=== PATIENT | female | born 1950 | race Caucasian/White ===

== ENCOUNTER 2017-03-16 07:16 | Emergency (ER) | payer MEDICARE, OTHER ==
[~2017-03-16] VITALS: Ht 157.5 cm; Wt 64.5 kg
[~2017-03-16 07:16] MED LIST: AMLO-511 PO; CALC500T62 PO; CARV12 PO; CLON0.1T PO; DIGO125T71 PO; INS7030UN SQ; LISI-618 PO; OMEP20TA86 PO; OSEL75 PO; WARF5 PO
[2017-03-16 07:27] LABS: GLUCOSE,POINT OF CARE 212 MG/DL (70-110)
[2017-03-16] MEDS ORDERED: SODIUM CHLORIDE 0.9% 1,000 ML IV ONE (07:45)
[2017-03-16] MEDS ORDERED: ONDANSETRON HCL 4 MG/2 ML VIAL IVP ONE (07:45)
[2017-03-16] MEDS ORDERED: KETOROLAC TROMETHAMINE 30 MG/ML VIAL IVP ONE (07:45)
[2017-03-16 07:58] LABS: BASOPHILS % (AUTO) 0.1 % (0.0-2.0); EOSINOPHILS % (AUTO) 0.5 % (1.0-6.0); HEMOGLOBIN 13.3 g/dL (12.0-16.0); LYMPHOCYTES % (AUTO) 22.1 % (22.0-44.0); MEAN CORPUSCULAR HEMOGLOBIN 27.9 pg (26.0-34.0); MEAN CORPUSCULAR HGB CONC 32.4 G/dL (31.0-37.0); MEAN CORPUSCULAR VOLUME 86 fL (80-100); MONOCYTES # (AUTO) 1.1 K/uL (0.1-1.0); MONOCYTES % (AUTO) 11.4 % (2.0-9.0); NEUTROPHILS # (AUTO) 6.1 K/uL (1.8-7.7); NEUTROPHILS % (AUTO) 65.9 % (40.0-70.0); PLATELET COUNT (AUTO) 185 K/uL (150-450); RED BLOOD CELL COUNT(AUTO) 4.77 MIL/uL (4.00-5.20); WHITE BLOOD COUNT (AUTO) 9.2 K/uL (4.5-11.0)
[2017-03-16 08:09] LABS: INR 2.1 (0.9-1.1); PROTHROMBIN TIME 22.1 SEC (9.4-11.6)
[2017-03-16 08:20] LABS: ANION GAP 6 mmol/L (8-16); CALCIUM, TOTAL 9.3 mg/dL (8.8-10.5); CARBON DIOXIDE 32 mmol/L (22-29); CHLORIDE 103 mmol/L (98-107); CREATININE 0.68 mg/dL (0.60-1.30); GLOMERULAR FILTR. RATE CALC > 60 mL/min (>60); POTASSIUM 4.1 mmol/L (3.5-5.1); SODIUM SERUM 141 mmol/L (136-145); UREA NITROGEN, BLOOD 12 mg/dL (7-18)
[2017-03-16 08:23] LABS: APPEARANCE,URINE CLOUDY (CLEAR); GLUCOSE, URINE (UA) 250 mg/dL (NEGATIVE); KETONES,URINE NEGATIVE (NEGATIVE); LEUKOCYTE ESTERASE ,URINE LARGE (NEGATIVE); OCCULT BLOOD,URINE TRACE (NEGATIVE); PH,URINE 7.5 (5.0-8.0); PROTEIN,URINE NEGATIVE (NEGATIVE)
[2017-03-16 08:24] LABS: ADD UA MICROSCOPIC YES
[2017-03-16 08:25] LABS: ALANINE AMINOTRANSFERASE 38 U/L (12-78); ALBUMIN 3.6 g/dL (3.4-5.0); ASPARTATE AMINOTRANSFERASE 32 U/L (15-37); BILIRUBIN,TOTAL 0.6 mg/dL (0.1-1.0); TOTAL PROTEIN, SERUM 7.4 g/dL (6.4-8.2)
[2017-03-16 08:34] LABS: SQUAMOUS EPITHELIAL CELL,UR Moderate /LPF (None Seen); WBC,URINE 26-50 /HPF (0-5)
[2017-03-16] MEDS ORDERED: CefTRIAXone 1 GM/DEXTROSE 50 ML IV ONE (09:15)
[2017-03-16 10:36] VITALS: BP 150/77
== END 2017-03-16 10:40 | disposition home or self-care (01) ==
LOC: EMS 07:19
DX: N39.0 Urinary tract infection, site not specified (principal); E11.9 Type 2 diabetes mellitus without complications; I10 Essential (primary) hypertension
CPT/HCPCS: 36415; 71010; 76705; 80053; 81001; 82962; 83690; 84484; 85025; 85610; 87077; 87086; 93005; 96361; 96365; 96375; 99285; J0696; J1885; J2405; J7030

== ENCOUNTER → 2017-03-22 | Outpatient (CLI) | payer MEDICARE, OTHER ==
[~2017-03-22] MED LIST changes: +IOVERSOL 350 MG/ML 100 ML VIAL ONE; -OSEL75 PO; +SODIUM CHLORIDE 0.9% 100 ML ONE
== END | disposition home or self-care (01) ==
LOC: RADMN 11:07
PROVIDERS: ATTEND Family Medicine
DX: K57.30 Diverticulosis of large intestine without perforation or abscess without bleeding (principal); N28.89 Other specified disorders of kidney and ureter; Z90.710 Acquired absence of both cervix and uterus
CPT/HCPCS: 74177; J7050; Q9967

== ENCOUNTER 2017-12-05 05:58 | Observation (INO) | payer MEDICARE, OTHER ==
[~2017-12-05] VITALS: Ht 157.5 cm; Wt 64.1 kg
[2017-12-05] VITALS (13 sets, daily range): BP systolic 118–178; BP diastolic 64–88
[~2017-12-05 05:58] MED LIST changes: +7030E SQ; +ATOR10TA84 PO; -CARV12 PO; -DIGO125T71 PO; +FURO20 PO; +GLIP5 PO; +HYDR25TA PO; -INS7030UN SQ; -IOVERSOL 350 MG/ML 100 ML VIAL ONE; +KDUR10 PO; +OMEP20TA25 PO; -OMEP20TA86 PO; -SODIUM CHLORIDE 0.9% 100 ML ONE; +VITAD1000 PO; +WARF7.5 PO
[2017-12-05] MEDS ORDERED: SODIUM CHLORIDE 0.9% 1,000 ML IV ONE ×2 (06:00)
[2017-12-05 06:51] LABS: BASOPHILS # (AUTO) 0.04 K/uL (0.00-0.20); BASOPHILS % (AUTO) 0.5 % (0.0-2.0); EOSINOPHILS # (AUTO) 0.07 K/uL (0.00-0.70); EOSINOPHILS % (AUTO) 0.83 % (1.0-6.0); HEMATOCRIT 39.2 % (36-46); HEMOGLOBIN 13.2 g/dL (12.0-16.0); LYMPHOCYTES # (AUTO) 2.9 K/uL (1.0-4.8); LYMPHOCYTES % (AUTO) 32.4 % (22.0-44.0); MEAN CORPUSCULAR HGB CONC 33.6 G/dL (31.0-37.0); MEAN CORPUSCULAR VOLUME 86 fL (80-100); MONOCYTES # (AUTO) 1.4 K/uL (0.1-1.0); MONOCYTES % (AUTO) 15.1 % (2.0-9.0); NEUTROPHILS # (AUTO) 4.6 K/uL (1.8-7.7); NEUTROPHILS % (AUTO) 51.2 % (40.0-70.0); PLATELET COUNT (AUTO) 210 K/uL (150-450); RED BLOOD CELL COUNT(AUTO) 4.55 MIL/uL (4.00-5.20); RED CELL DISTRIBUTION WIDTH 14.2 % (11.5-14.5)
[2017-12-05 07:03] LABS: INR 1.6 (0.9-1.1); PROTHROMBIN TIME 16.9 SEC (9.4-11.6)
[2017-12-05 07:12] LABS: ANION GAP 6 mmol/L (8-16); CALCIUM, TOTAL 9.8 mg/dL (8.8-10.5); CARBON DIOXIDE 32 mmol/L (22-29); CHLORIDE 100 mmol/L (98-107); CREATININE 0.67 mg/dL (0.60-1.30); GLOMERULAR FILTR. RATE CALC > 60 mL/min (>60); GLUCOSE,RANDOM 56 mg/dL (70-110); POTASSIUM 3.6 mmol/L (3.5-5.1); SODIUM SERUM 138 mmol/L (136-145); UREA NITROGEN, BLOOD 17 mg/dL (7-18)
[2017-12-05] MEDS ORDERED: SODIUM BICARBONATE 50 MEQ/50 ML VIAL ONE (07:12)
[2017-12-05] MEDS ORDERED: LIDOCAINE HCL/PF 1% 30 ML VIAL ONE (07:12)
[2017-12-05] MEDS ORDERED: 0.9% SODIUM CHLORIDE 10 ML SYRINGE IVP ONE (07:14)
[2017-12-05] MEDS ORDERED: FentaNYL CITRATE-PF 100 MCG/2 ML VIAL ONE ×2 (07:36→08:03)
[2017-12-05] MEDS ORDERED: MIDAZOLAM HCL 2 MG/2 ML VIAL ONE ×2 (07:37→08:03)
[2017-12-05] MEDS ORDERED: DEXTROSE 50%-WATER 25 GM/50 ML SYRINGE IVP ONE ×2 (07:53→07:54)
[2017-12-05] MEDS ORDERED: MIDAZOLAM HCL 2 MG/2 ML VIAL IVP ONE ×2 (07:54→07:57)
[2017-12-05] MEDS ORDERED: FentaNYL CITRATE-PF 100 MCG/2 ML VIAL IVP ONE ×2 (07:54→07:57)
[2017-12-05] MEDS ORDERED: LIDOCAINE 1% 30 ML/SOD BICARB 8.4% 4 ML SQ ONE (07:57)
[2017-12-05] MEDS ORDERED: IOHEXOL 300 MG/ML 50 ML VIAL IVP ONE (07:57)
[2017-12-05] MEDS ORDERED: IOHEXOL 300 MG/ML 50 ML VIAL ONE (07:59)
[2017-12-05] MEDS ORDERED: POTASSIUM CHLORIDE 10 MEQ ER TABLET PO SCH (09:00)
[2017-12-05] MEDS ORDERED: ONDANSETRON HCL 4 MG/2 ML VIAL IVP PRN (09:00)
[2017-12-05] MEDS ORDERED: DEXTROSE 50%-WATER 25 GM/50 ML SYRINGE IVP PRN (09:15)
[2017-12-05] MEDS ORDERED: POTASSIUM CHLORIDE 8 MEQ ER TABLET PO SCH (09:18)
[2017-12-05] MEDS: FUROSEMIDE 20 MG TABLET PO SCH (10:44)
[2017-12-05] MEDS: ATORVASTATIN CALCIUM 10 MG TABLET PO SCH (10:44)
[2017-12-05] MEDS: AmLODIPine BESYLATE 5 MG TABLET PO SCH (10:44)
[2017-12-05] MEDS: LISINOPRIL 20 MG TABLET PO SCH (10:44)
[2017-12-05] MEDS: OMEPRAZOLE 20 MG CAPSULE PO SCH (10:45)
[2017-12-05] MEDS: HYDROCHLOROTHIAZIDE 25 MG TABLET PO SCH (10:45)
[2017-12-05] MEDS: ACETAMINOPHEN 325 MG TABLET PO SCH ×3 (12:29→20:05)
[2017-12-05] MEDS: INSULIN ASPART 100 UNITS/ML - NON-FORMULARY SQ PRN ×3 (12:31→21:56)
[2017-12-05 12:34] LABS: GLUCOMETER DEV NAME(LOC) 5S 2N; GLUCOSE,POINT OF CARE 395 MG/DL (70-110)
[2017-12-05] MEDS: CeFAZolin 1 GM/DEXTROSE 50 ML IV SCH ×2 (14:01→20:05)
[2017-12-05] MEDS ORDERED: WARFARIN SODIUM 5 MG TABLET PO ONE (17:00)
[2017-12-05] MEDS: GlipiZIDE 5 MG TABLET PO SCH (17:46)
[2017-12-05] MEDS ORDERED: CloNIDine HCL 0.1 MG TABLET PO SCH (21:00)
[2017-12-06] MEDS ORDERED: CeFAZolin 1 GM/DEXTROSE 10 ML IV SCH (02:30)
[2017-12-06 04:50] VITALS: BP 156/87
[2017-12-06 05:54] LABS: GLUCOMETER DEV NAME(LOC) 5S 1L; GLUCOSE,POINT OF CARE 212 MG/DL (70-110)
[2017-12-06] MEDS: ACETAMINOPHEN 325 MG TABLET PO SCH ×2 (06:00→12:02)
[2017-12-06] MEDS: GlipiZIDE 5 MG TABLET PO SCH (06:17)
[2017-12-06] MEDS: INSULIN ASPART 100 UNITS/ML - NON-FORMULARY SQ PRN ×2 (06:18→12:01)
[2017-12-06 07:38] VITALS: BP 131/79
[2017-12-06] MEDS ORDERED: MAGNESIUM HYDROXIDE SUSPENSION 30 ML UDCUP PO PRN (07:45)
[2017-12-06] MEDS: FUROSEMIDE 20 MG TABLET PO SCH (08:47)
[2017-12-06] MEDS: ATORVASTATIN CALCIUM 10 MG TABLET PO SCH (08:47)
[2017-12-06] MEDS: HYDROCHLOROTHIAZIDE 25 MG TABLET PO SCH (08:47)
[2017-12-06] MEDS: AmLODIPine BESYLATE 5 MG TABLET PO SCH (08:48)
[2017-12-06] MEDS: OMEPRAZOLE 20 MG CAPSULE PO SCH (08:48)
[2017-12-06] MEDS: LISINOPRIL 20 MG TABLET PO SCH (08:48)
[2017-12-06] MEDS ORDERED: INSULIN GLARGINE,HUM.REC.ANLOG 100 UNITS/ML SQ SCH (09:00)
[2017-12-06 09:10] LABS: INR 2.1 (0.9-1.1); PROTHROMBIN TIME 22.4 SEC (9.4-11.6)
[2017-12-06] MEDS ORDERED: WARF5 PO ×2 (10:59→11:03)
[2017-12-06] MEDS ORDERED: WARF7.5 PO (11:07)
[2017-12-06 11:43] VITALS: BP 135/86
[2017-12-06] MEDS ORDERED: INSULIN REGULAR, HUMAN 100 UNITS/ML SQ ONE (13:45)
[2017-12-06 15:12] LABS: GLUCOMETER DEV NAME(LOC) 5N 1M; GLUCOSE,POINT OF CARE 310 MG/DL (70-110)
[2017-12-06 15:13] LABS: GLUCOMETER DEV NAME(LOC) 5N 1M; GLUCOSE,POINT OF CARE 424 MG/DL (70-110)
[2017-12-06 15:13] LABS: GLUCOMETER DEV NAME(LOC) 5N 1M; GLUCOSE,POINT OF CARE 346 MG/DL (70-110)
[2017-12-06 15:13] LABS: GLUCOMETER DEV NAME(LOC) 5N 1M; GLUCOSE,POINT OF CARE 453 MG/DL (70-110)
[2017-12-06 15:13] LABS: GLUCOMETER DEV NAME(LOC) 5N 1M; GLUCOSE,POINT OF CARE 465 MG/DL (70-110)
[2017-12-06] MEDS ORDERED: WARFARIN SODIUM 5 MG TABLET PO SCH (17:00)
[2017-12-07 11:53] LABS: GLUCOMETER DEV NAME(LOC) 5S 2N; GLUCOSE,POINT OF CARE 338 MG/DL (70-110)
== END 2017-12-06 14:50 | disposition home or self-care (01) ==
LOC: INTOOBSV 05:58 → 5N 05:58
PROVIDERS: ADMIT Internal Medicine Cardiovascular Disease; ATTEND Internal Medicine Cardiovascular Disease
DX: I49.5 Sick sinus syndrome (principal); I11.0 Hypertensive heart disease with heart failure; I50.30 Unspecified diastolic (congestive) heart failure; E11.9 Type 2 diabetes mellitus without complications; I48.2 Chronic atrial fibrillation; I47.1 Supraventricular tachycardia; I25.9 Chronic ischemic heart disease, unspecified; I24.8 Other forms of acute ischemic heart disease; Z95.2 Presence of prosthetic heart valve; Z79.4 Long term (current) use of insulin
CPT/HCPCS: 33208; 36005; 36415 ×2; 71045; 71046; 76000; 80048; 82962 ×2; 85025; 85610 ×2; 85730; 87081; 93005; 96365; 96372 ×2; 96375; 96376 ×2; C1785; C1892; C1899; G0378 ×2; J0690 ×2; J1815 ×2; J2250; J3010; J3490 ×2; J7030; Q9967; 99152; 99153

== ENCOUNTER → 2018-05-10 | Outpatient (CLI) | payer MEDICARE, OTHER | END | disposition home or self-care (01) | LOC: RADPV 08:57 | PROVIDERS: ATTEND Internal Medicine Cardiovascular Disease | DX: I11.0 Hypertensive heart disease with heart failure (principal); I50.9 Heart failure, unspecified; E11.8 Type 2 diabetes mellitus with unspecified complications; E55.9 Vitamin D deficiency, unspecified; D56.5 Hemoglobin E-beta thalassemia; Z95.0 Presence of cardiac pacemaker; Z95.2 Presence of prosthetic heart valve | CPT/HCPCS: 71046 ==

== ENCOUNTER 2020-05-04 16:15 | Inpatient (IN) | payer MEDICARE, OTHER ==
[~2020-05-04] VITALS: Ht 160 cm; Wt 57.2 kg
[~2020-05-04 16:15] MED LIST changes: -AMLO-511 PO; +AMLO5TAB9 PO; +CHOL100018 PO; +HYDR-1475 PO; -HYDR25TA PO; -KDUR10 PO; +POTA-92 PO; -VITAD1000 PO; -WARF5 PO; +WARF5TAB40 PO; -WARF7.5 PO; +WARF7.5T7 PO
[2020-05-04] MEDS ORDERED: WARF2.5T38 PO (16:24)
[2020-05-04] MEDS ORDERED: METO50 PO (16:24)
[2020-05-04] MEDS ORDERED: ATOR20TA86 PO (16:24)
[2020-05-04] MEDS ORDERED: NIFE-64 PO (16:24)
[2020-05-04] MEDS ORDERED: ISOS10TA16 PO (16:24)
[2020-05-04 17:24] LABS: BASOPHILS % (AUTO) 0.3 % (0.0-2.0); EOSINOPHILS % (AUTO) 0 % (1.0-6.0); HEMATOCRIT 40.3 % (36-46); HEMOGLOBIN 13.2 g/dL (12.0-16.0); LYMPHOCYTES # (AUTO) 0.8 K/uL (1.0-4.8); LYMPHOCYTES % (AUTO) 6.5 % (22.0-44.0); MEAN CORPUSCULAR HGB CONC 32.9 G/dL (31.0-37.0); MEAN CORPUSCULAR VOLUME 85 fL (80-100); MONOCYTES # (AUTO) 0.3 K/uL (0.1-1.0); MONOCYTES % (AUTO) 2.5 % (2.0-9.0); NEUTROPHILS # (AUTO) 10.9 K/uL (1.8-7.7); PLATELET COUNT (AUTO) 199 K/uL (150-450); RED BLOOD CELL COUNT(AUTO) 4.72 MIL/uL (4.00-5.20); RED CELL DISTRIBUTION WIDTH 14.4 % (11.5-14.5)
[2020-05-04 17:26] LABS: NEUTROPHILS % (AUTO) 90.7 % (40.0-70.0)
[2020-05-04] MEDS ORDERED: SODIUM CHLORIDE 0.9% 250 ML IV ONE (17:45)
[2020-05-04] MEDS ORDERED: ONDANSETRON HCL 4 MG/2 ML VIAL IVP ONE ×2 (17:45→20:15)
[2020-05-04] MEDS ORDERED: FAMOTIDINE 10 MG/ML 2 ML VIAL IVP ONE (17:45)
[2020-05-04] MEDS ORDERED: WARF-67 PO (17:47)
[2020-05-04] MEDS ORDERED: CHOL100018 PO (17:47)
[2020-05-04] MEDS ORDERED: OS500 PO (17:47)
[2020-05-04 18:16] LABS: INR 2.1 (0.9-1.1); PROTHROMBIN TIME 21.2 SEC (9.4-11.6)
[2020-05-04 18:32] LABS: ANION GAP 18 mmol/L (8-16); CALCIUM, TOTAL 9.5 mg/dL (8.8-10.5); CARBON DIOXIDE 24 mmol/L (22-29); CHLORIDE 99 mmol/L (98-107); CREATININE 0.79 mg/dL (0.60-1.30); GLOMERULAR FILTR. RATE CALC > 60 mL/min (>60); GLUCOSE,RANDOM 175 mg/dL (70-110); POTASSIUM 3.7 mmol/L (3.5-5.1); SODIUM SERUM 141 mmol/L (136-145); UREA NITROGEN, BLOOD 17 mg/dL (7-18)
[2020-05-04 18:34] LABS: APPEARANCE,URINE CLEAR (CLEAR); BILIRUBIN,URINE NEGATIVE (NEGATIVE); GLUCOSE, URINE (UA) 100 mg/dL (NEGATIVE); KETONES,URINE 15 mg/dL (NEGATIVE); LEUKOCYTE ESTERASE ,URINE SMALL (NEGATIVE); NITRATE,URINE POSITIVE (NEGATIVE); OCCULT BLOOD,URINE SMALL (NEGATIVE); PH,URINE 7.5 (5.0-8.0); PROTEIN,URINE POS 1+ (NEGATIVE); UROBILINOGEN,URINE 0.2 mg/dL (<=1.0)
[2020-05-04 18:35] LABS: LACTIC ACID 2.2 mmol/L (0.4-2.0)
[2020-05-04 18:40] LABS: ALANINE AMINOTRANSFERASE 37 U/L (12-78); ALBUMIN 4.4 g/dL (3.4-5.0); ALKALINE PHOSPHATASE 174 U/L (46-116); ASPARTATE AMINOTRANSFERASE 30 U/L (15-37); BILIRUBIN,TOTAL 0.8 mg/dL (0.1-1.0); LIPASE 43 U/L (73-393); TOTAL PROTEIN, SERUM 8.5 g/dL (6.4-8.2)
[2020-05-04 18:45] LABS: BACTERIA,URINE Many /HPF (None Seen)
[2020-05-04] MEDS ORDERED: CefTRIAXone 1 GM/DEXTROSE 50 ML IV ONE (18:45)
[2020-05-04] MEDS ORDERED: MetroNIDAZOLE 500 MG/NACL 100 ML IV ONE (18:45)
[2020-05-04] MEDS ORDERED: SODIUM CHLORIDE 0.9% 500 ML IV ONE (18:45)
[2020-05-04] MEDS ORDERED: FentaNYL CITRATE-PF 100 MCG/2 ML VIAL IVP ONE ×2 (18:45)
[2020-05-04 18:46] LABS: RBC,URINE 0-2 /HPF (0-2); SQUAMOUS EPITHELIAL CELL,UR Few /LPF (None Seen)
[2020-05-04] MEDS ORDERED: IOVERSOL 350 MG/ML 100 ML VIAL ONE (18:52)
[2020-05-04] MEDS ORDERED: SODIUM CHLORIDE 0.9% 100 ML ONE (18:52)
[2020-05-04] MEDS ORDERED: SODIUM CHLORIDE 0.9% 1,000 ML IV ONE (20:45)
[2020-05-04] MEDS ORDERED: ACETAMINOPHEN 325 MG TABLET PO PRN (21:00)
[2020-05-04] MEDS ORDERED: 0.9% SODIUM CHLORIDE 10 ML SYRINGE IVP PRN (21:00)
[2020-05-04] MEDS ORDERED: ONDANSETRON HCL 4 MG/2 ML VIAL IVP PRN (21:00)
[2020-05-05] MEDS ORDERED: METOPROLOL TARTRATE 50 MG TABLET PO ONE (00:15)
[2020-05-05] MEDS ORDERED: LISINOPRIL 20 MG TABLET PO ONE (00:15)
[2020-05-05] MEDS ORDERED: INSULIN LISPRO 100 UNITS/ML SQ PRN (00:15)
[2020-05-05] MEDS ORDERED: DEXTROSE 50%-WATER 25 GM/50 ML SYRINGE IVP PRN (00:15)
[2020-05-05] MEDS ORDERED: NIFEdipine 30 MG ER TABLET PO ONE (00:15)
[2020-05-05 00:41] VITALS: BP 154/76
[2020-05-05 05:17] VITALS: BP 137/74
[2020-05-05] MEDS: GlipiZIDE 5 MG TABLET PO SCH ×2 (06:05→17:30)
[2020-05-05 07:45] VITALS: BP 136/73
[2020-05-05 08:00] VITALS: BP 123/55
[2020-05-05] MEDS ORDERED: ISOSORBIDE DINITRATE 10 MG TABLET PO SCH (09:00)
[2020-05-05] MEDS ORDERED: INSULIN HUMAN NPH-REGULAR 70/30 100 UNITS/ML SQ SCH ×2 (09:00→21:00)
[2020-05-05] MEDS ORDERED: WARFARIN SODIUM 2 MG TABLET PO SCH (09:00)
[2020-05-05] MEDS ORDERED: CHOLECALCIFEROL (VIT D3) 1,000 UNITS [25 MCG] TABLET PO SCH (09:00)
[2020-05-05] MEDS ORDERED: NIFEdipine 30 MG ER TABLET PO SCH (09:00)
[2020-05-05] MEDS ORDERED: OMEPRAZOLE 20 MG CAPSULE PO SCH (09:00)
[2020-05-05] MEDS ORDERED: METOPROLOL TARTRATE 50 MG TABLET PO SCH (09:00)
[2020-05-05] MEDS ORDERED: HYDROCHLOROTHIAZIDE 25 MG TABLET PO SCH (09:00)
[2020-05-05] MEDS ORDERED: FUROSEMIDE 20 MG TABLET PO SCH (09:00)
[2020-05-05] MEDS ORDERED: CALCIUM OYSTER SHELL 500 MG TABLET PO SCH (09:00)
[2020-05-05] MEDS ORDERED: LISINOPRIL 20 MG TABLET PO SCH (09:00)
[2020-05-05] MEDS ORDERED: ATORVASTATIN CALCIUM 20 MG TABLET PO SCH (09:00)
[2020-05-05] MEDS ORDERED: MORPHINE SULFATE 2 MG/ML SYRINGE IVP PRN (15:45)
[2020-05-05] MEDS ORDERED: IPRATROPIUM BROMIDE 0.5 MG/2.5 ML NEB SOLUTION NEB PRN (15:45)
[2020-05-05] MEDS ORDERED: ZOLPIDEM TARTRATE 5 MG TABLET PO PRN (15:45)
[2020-05-05] MEDS ORDERED: HYDROCODONE/ACETAMINOPHEN 5-325 MG TABLET PO PRN (15:45)
[2020-05-05] MEDS ORDERED: BISACODYL 10 MG RECTAL RECTAL SUPPOSITORY PR PRN (15:45)
[2020-05-05] MEDS ORDERED: ONDANSETRON HCL 4 MG/2 ML VIAL IVP PRN (15:45)
[2020-05-05] MEDS ORDERED: ALBUTEROL SULFATE 2.5 MG/0.5 ML NEB SOLUTION NEB PRN (15:45)
[2020-05-05] MEDS ORDERED: ACETAMINOPHEN 325 MG TABLET PO PRN ×2 (15:45)
[2020-05-05] MEDS ORDERED: MAGNESIUM HYDROXIDE SUSPENSION 30 ML UDCUP PO PRN (15:45)
[2020-05-05] MEDS: HEPARIN SODIUM,PORCINE 5,000 UNITS/ML VIAL SQ SCH ×2 (15:56→16:00)
[2020-05-05 16:18] VITALS: BP 127/68
[2020-05-05 16:43] LABS: BASOPHILS % (AUTO) 0.3 % (0.0-2.0); EOSINOPHILS % (AUTO) 0.2 % (1.0-6.0); HEMOGLOBIN 13.8 g/dL (12.0-16.0); LYMPHOCYTES # (AUTO) 1.5 K/uL (1.0-4.8); LYMPHOCYTES % (AUTO) 12.4 % (22.0-44.0); MEAN CORPUSCULAR HEMOGLOBIN 27.9 pg (26.0-34.0); MEAN CORPUSCULAR VOLUME 85 fL (80-100); MONOCYTES # (AUTO) 1.2 K/uL (0.1-1.0); MONOCYTES % (AUTO) 10.2 % (2.0-9.0); NEUTROPHILS # (AUTO) 9.5 K/uL (1.8-7.7); NEUTROPHILS % (AUTO) 76.9 % (40.0-70.0); PLATELET COUNT (AUTO) 207 K/uL (150-450); RED BLOOD CELL COUNT(AUTO) 4.96 MIL/uL (4.00-5.20); RED CELL DISTRIBUTION WIDTH 14.5 % (11.5-14.5)
[2020-05-05 16:56] LABS: ANION GAP 10 mmol/L (8-16); CALCIUM, TOTAL 9.7 mg/dL (8.8-10.5); CARBON DIOXIDE 27 mmol/L (22-29); CHLORIDE 101 mmol/L (98-107); CREATININE 0.83 mg/dL (0.60-1.30); GLOMERULAR FILTR. RATE CALC > 60 mL/min (>60); GLUCOSE,RANDOM 136 mg/dL (70-110); POTASSIUM 3.4 mmol/L (3.5-5.1); SODIUM SERUM 138 mmol/L (136-145); UREA NITROGEN, BLOOD 12 mg/dL (7-18)
[2020-05-05 17:01] LABS: ALANINE AMINOTRANSFERASE 31 U/L (12-78); ALKALINE PHOSPHATASE 151 U/L (46-116); ASPARTATE AMINOTRANSFERASE 23 U/L (15-37); BILIRUBIN,TOTAL 0.8 mg/dL (0.1-1.0); TOTAL PROTEIN, SERUM 7.9 g/dL (6.4-8.2)
[2020-05-05 17:26] LABS: GLUCOMETER DEV NAME(LOC) 6N.2; GLUCOSE,POINT OF CARE 161 MG/DL (70-110)
[2020-05-05 17:26] LABS: GLUCOMETER DEV NAME(LOC) 6N.2; GLUCOSE,POINT OF CARE 133 MG/DL (70-110)
[2020-05-05] MEDS ORDERED: CefTRIAXone 1 GM/DEXTROSE 50 ML IV SCH (20:00)
[2020-05-05 20:14] LABS: GLUCOMETER DEV NAME(LOC) 6N.2; GLUCOSE,POINT OF CARE 119 MG/DL (70-110)
[2020-05-05 20:38] VITALS: BP 122/70
[2020-05-05] MEDS ORDERED: DOCUSATE SODIUM 100 MG CAPSULE PO SCH (21:00)
[2020-05-05] MEDS ORDERED: CloNIDine HCL 0.1 MG TABLET PO SCH (21:00)
[2020-05-06] MEDS ORDERED: WARFARIN SODIUM 2 MG TABLET PO SCH (17:00)
== END 2020-05-05 20:45 | disposition left against medical advice (07) | DRG 690 ==
LOC: EMS 16:15 → 6N 20:55
PROVIDERS: ADMIT Hospitalist; ATTEND Hospitalist
DX: N12 Tubulo-interstitial nephritis, not specified as acute or chronic (principal); E78.00 Pure hypercholesterolemia, unspecified; E78.5 Hyperlipidemia, unspecified; I11.9 Hypertensive heart disease without heart failure; I25.10 Atherosclerotic heart disease of native coronary artery without angina pectoris; I48.91 Unspecified atrial fibrillation; R04.0 Epistaxis; R19.7 Diarrhea, unspecified; E11.9 Type 2 diabetes mellitus without complications; Z20.828 Contact with and (suspected) exposure to other viral communicable diseases; Z79.01 Long term (current) use of anticoagulants; Z90.710 Acquired absence of both cervix and uterus; Z95.2 Presence of prosthetic heart valve; Z79.4 Long term (current) use of insulin; Z79.1 Long term (current) use of non-steroidal anti-inflammatories (NSAID); Z79.02 Long term (current) use of antithrombotics/antiplatelets; Z79.899 Other long term (current) drug therapy; Z95.1 Presence of aortocoronary bypass graft
CPT/HCPCS: 70450; 74177; 83605; 87040; 87086; 93005; 99291; J0696; J1644; J1815; J2405; J3010; J3490; J7040; J7050

== ENCOUNTER → 2020-07-24 | Outpatient (CLI) | payer MEDICARE, OTHER ==
[~2020-07-24] MED LIST changes: -AMLO5TAB9 PO; -ATOR10TA84 PO; +ATOR20TA86 PO; -CALC500T62 PO; +ISOS10TA16 PO; +METO50 PO; +NIFE-64 PO; +OS500 PO; -POTA-92 PO; +WARF-67 PO; -WARF5TAB40 PO; -WARF7.5T7 PO
== END | disposition home or self-care (01) ==
LOC: RADPV 11:57
PROVIDERS: ATTEND Internal Medicine Cardiovascular Disease
DX: R06.02 Shortness of breath (principal)
CPT/HCPCS: 71046; 71046-TC

== ENCOUNTER → 2020-08-11 | Outpatient (CLI) | payer MEDICARE, OTHER | END | disposition home or self-care (01) | LOC: RADPV 11:16 | PROVIDERS: ATTEND Nurse Practitioner | DX: R91.8 Other nonspecific abnormal finding of lung field (principal); J18.9 Pneumonia, unspecified organism | CPT/HCPCS: 71046; 71046-TC ==